=== PATIENT | female | born 1965 | race Caucasian/White ===

== ENCOUNTER → 2016-11-12 | Outpatient (CLI) | payer OTHER ==
[~2016-11-12] MED LIST: ABILIFY5 MG PO; ACETAMINOPHEN650 M3 PO; ALDACTONE25 MG PO; ALLOPURINOL300 MG PO; AUGMENTIN PO; B COMPLEX1 CA1 PO; BACTRIM DS TABL1 TA2 PO; BIRTH CONTROL PILL; CAPOZIDE PO; CYMBALTA; DESYREL50 M1 PO; DIAZEPAM PO; DICLOFENAC; EFFEXOR75 M1 PO; ESTRACE2 M1 PO; FLOMAX0.4 M1 PO; GABAPENTIN300 M2 PO; GABAPENTIN400 MG PO; HYDROCODON-ACE1 EAC9 PO; LASIX20 MG PO; LEVOTHYROXINE100 MCG PO; LEVOTHYROXINE75 MCG PO; LEXAPRO PO; NEURONTIN; OXYCODON HCL-AP1 TA2 PO; PAXIL40 MG PO; PLAQUENIL200 MG PO; POTASSIUM CITRATE PO; PREMARIN PO; PRISTIQ50 MG PO; PYRIDIUM100 MG PO; Q-SORB CO Q-101 EACH; SPIRONOLACTONE-1 TAB PO; TALACEN CAPLET1 TAB PO; TOPAMAX PO; TYLOX 5/500 CAP1 CAP; VALIUM10 MG PO; VICODIN 5/500 T1 TAB PO; VITAMIN B650 M1 PO; VITAMIN D35000 UNI1 PO; VOLTAREN75 MG PO; WALGREENS PHARMACY; ZANAFLEX; ZANAFLEX4 M1 PO; ZOFRAN PO; [UNRECOGNIZED DRUG - OTHER] PO
--- NOTE | ~2016-11-12 | CT3 ---
[facility] A Service of [facility] & [facility] RADIOLOGY TEXT RESULTS PATIENT: NANDA PARK [facility] 69 UNIT #: [id number] AGE: [address]: Sha Plascencia MD SEX: F ORDER DR: [id number] [facility] [address] [place], [place] [address] [id number] O MR#: [id number] Acc #: [id number] NAME: NANDA PARK. : 1965 SEX: F STUDY DATE/TIME: 11/12/2016 10:43 UNIT: [facility] ROOM: STUDY DESCRIPTION: CT Abd and Pelv WWo Cont Attending Physician: Sha Plascencia M.D. Referring Physician: Sha Plascencia M.D. Ordering Physician: Sha Plascencia M.D. Primary Care Physician: Primary Care Physician No MEDICAL IMAGING REPORT This report is preliminary unless electronic signature is present EXAM CT scan of the abdomen and pelvis with and without contrast HISTORY Follow-up renal and perirenal abscess from 2 weeks ago with pain on right side. The patient developed abscess after stone removal in June. COMPARISON CT scan from [facility] dated 07/01/2016. TECHNIQUE This CT exam was performed with one or more of the following radiation dose reduction techniques: automatic exposure control, adjustment of mA and/or kV according to patient size, and iterative reconstruction. FINDINGS Initially unenhanced images were obtained through the abdomen and pelvis at 3.0 mm intervals and then the patient was given 100 mL of Isovue 370 and arterial phase images of the kidneys with 90-second delayed images of the kidneys were obtained followed by 5-minute delayed images through the abdomen and pelvis. The lung bases are clear. The gallbladder has been removed. The liver is normal. The spleen is slightly enlarged and stable from old exams measuring about 15.0 cm in maximum dimension. Pancreas, adrenal glands and aorta are normal in appearance. There is a gastric band device present. There are multiple bilateral renal stones measuring up to 9.0 mm in diameter. These are located primarily on the lower pole of each kidney. There is curvilinear calcification at the juncture of the medullary tissue cortical tissues throughout the kidneys which is stable from old exams. The previous study in June 2016 showed extensive inflammatory change and infectious change around the right kidney with STS. [facility] A Service of [facility] & [facility] RADIOLOGY TEXT RESULTS PATIENT: NANDA PARK LOCATION: [facility] : [birth year] UNIT #: [id number] AGE: [address]: Sha Plascencia MD SEX: F ORDER DR: abscess drainage catheter present. Those findings have all resolved and the catheter has been removed. Perinephric regions are normal bilaterally. There is no hydronephrosis and no ureteral stones are suggested. There is no adenopathy. The bowel is normal. I believe the right ovary is still present and there is an 18.0 mm low density area within the right ovary which is unchanged from 05/21/2016 and I believe it was also present 06/05/2012. The bladder is normal. The bones show degenerative changes in the lumbar spine. IMPRESSION 1. All the inflammatory and infectious changes around the right kidney noted in June 2016 have resolved. 2. Multiple bilateral renal stones and renal cortical calcifications are present without hydronephrosis. 3. 18.0 mm low density in what I believe is the right ovary. The patient has had a hysterectomy. This is unchanged for a number of years. Dictated by... Walker Menard M.D. THIS IS AN ELECTRONICALLY VERIFIED REPORT Walker Menard M.D. at 11/13/2016 11:53 AM JESS/lambert TD: 11/13/2016 10:34 JOB #: [id number] MEDICAL IMAGING REPORT Page 1 of 1 COPY
== END | disposition home or self-care (01) ==
LOC: CCAT 08:38
DX: N20.0 Calculus of kidney (principal); Z90.710 Acquired absence of both cervix and uterus
CPT/HCPCS: 74178; Q9967